=== PATIENT | female | born 1935 ===

== ENCOUNTER 2020-12-06 11:26 | Outpatient (CLI) | payer SELFPAY ==
[2020-12-06] MEDS ORDERED: COVID-19 VACC, MRNA(PFIZER)/PF 30 MCG/0.3 ML IM ONE (11:59)
== END 2020-12-06 11:27 | disposition home or self-care (01) ==
LOC: COVVAC 11:26
PROVIDERS: ATTEND Internal Medicine
DX: Z23 Encounter for immunization (principal)
CPT/HCPCS: 0002A; 91300